=== PATIENT | female | born 1975 ===

== ENCOUNTER 2018-01-07 16:35 | Emergency (ER) | payer SELFPAY ==
[2018-01-07 17:18] LABS: Absolute Lymphocytes (CBC) 1.7 K/uL (0.7-4.9); Absolute Monocytes 0.6 K/uL (0.1-1.3); Absolute Neutrophil 5.6 K/uL (1.8-8.0); Basophils % 0.5 % (0-1.3); Eosinophils % 0.7 % (0-4.4); Lymphocytes % 21.7 % (15.3-44.8); MCH 28.7 pg (27.0-35.0); MCV 85.1 fL (80-100); MPV 7.8 fL (7.6-11.3); RBC Red Blood Cell Count 4.46 M/uL (3.86-4.86)
[2018-01-07 17:19] LABS: Protime INR 1.08
[2018-01-07] MEDS ORDERED: ONDANSETRON 4 MG/2 ML VIAL ONE (17:26)
[2018-01-07 17:31] LABS: ALT/SGPT 20 U/L (12-78); AST/SGOT 15 U/L (15-37); Albumin 3.9 g/dL (3.4-5.0); Alkaline Phosphatase 67 U/L (45-117); BUN Blood Urea Nitrogen 16 mg/dL (7-18); Bicarbonate 24 mmol/L (21-32); Bilirubin Direct 0.1 mg/dL (0-0.2); Bilirubin Total 0.4 mg/dL (0.2-1.0); Glucose Level 94 mg/dL (74-106); Magnesium 2.1 mg/dL (1.8-2.4); NT PRO-BNP 72 pg/mL (<125); Potassium 3.1 mmol/L (3.5-5.1); Protein, Total 8.3 g/dL (6.4-8.2); Sodium Level 139 mmol/L (136-145); Troponin (Emerg Dept Use Only) < 0.02 ng/mL (0.0-0.045)
[2018-01-07] MEDS ORDERED: POTASSIUM 25 MEQ EFFERV TAB ONE (17:42)
--- NOTE | 2018-01-07 18:01 | RAD REPORT ---
EXAM DESCRIPTION: RAD - Chest Single View - 01/07/2018 5:12 pm CLINICAL HISTORY: Chest pain COMPARISON: None. TECHNIQUE: AP portable chest image was obtained 1701 hours . FINDINGS: Lungs are clear. Heart and vasculature are normal. No measurable pleural effusion and no p neumothorax. No acute bony abnormality seen. No acute aortic findings suspected. IMPRESSION: No acute cardiopulmonary process.
[2018-01-07 19:20] LABS: Urine Blood NEGATIVE (NEG); Urine Glucose NEGATIVE (NEG); Urine Protein NEGATIVE (NEG); Urine pH 5.5 (5.0-7.0)
--- NOTE | 2018-01-07 21:35 | ER ---
Nurse's Notes [facility] Name: Deanne Quintero Age: 42 yrs Sex: Female : 1975 Arrival Date: 01/07/2018 Time: 16:36 Bed 14 Private MD: Diagnosis: Chest pain, unspecified Presentation: 01/07 16:40 Presenting complaint: Patient states: I was walking around the store and suddenly got la1 nausea and felt like I was going to pass out and now I am having chest pain and numbness/tingling. Transition of care: patient was not received from another setting of care. Onset of symptoms was January 07, 2018. Risk Assessment: Do you want to hurt yourself or someone else? Patient reports no desire to harm self or others. Initial Sepsis Screen: Does the patient meet any 2 criteria? No. Patient's initial sepsis screen is negative. Does the patient have a suspected source of infection? No. Patient's initial sepsis screen is negative. Care prior to arrival: None. 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 - Social history:: Smoking status: Patient/guardian denies using tobacco. - Ebola Screening: : No symptoms or risks identified at this time. Screenin:46 Abuse screen: Denies threats or abuse. Denies injuries from another. Nutritional aj screening: No deficits noted. Tuberculosis screening: No symptoms or risk factors identified. Fall Risk None identified. Assessment: 16:46 General: Appears in no apparent distress. comfortable, Behavior is anxious. Pain: aj Complains of pain in anterior aspect of left upper chest, xyphoid area, mid-sternal area and left breast Pain radiates to left arm Pain began suddenly. Neuro: Level of Consciousness is awake, alert, obeys commands, Oriented to person, place, time, situation, Appropriate for age. Cardiovascular: Reports chest pain, lightheadedness, nausea, Capillary refill < 3 seconds in bilateral fingers Rhythm is regular. Respiratory: Airway is patent Respiratory effort is even, unlabored, Respiratory pattern is regular, symmetrical. Derm: Skin is intact, is healthy with good turgor, Skin is pink, warm \T\ dry. normal. 17:24 Reassessment: Patient's boyfriend and son are at bedside. Patient provided with ice aj water and instructed to wait 15 minutes after Zofran administration before taking small sips of water. 19:05 Reassessment: Patient appears in no apparent distress at this time. Patient and/or cc3 family updated on plan of care and expected duration. Pain level reassessed. Patient is alert, oriented x 3, equal unlabored respirations, skin warm/dry/pink. Received this female patient from morning shift TALA Montague as a case of chest pain, with IV cannula gauge 20 at the right metacarpal vein saline locked; for repeat Troponin I at 2100H as endorsed. NRS 2/10 now. 20:56 Reassessment: Repeat Troponin I sent to laboratory as ordered, awaiting result. cc3 21:29 Reassessment: Patient appears in no apparent distress at this time. Patient and/or cc3 family updated on plan of care and expected duration. Pain level reassessed. Patient is alert, oriented x 3, equal unlabored respirations, skin warm/dry/pink. 21:53 Reassessment: Patient appears in no apparent distress at this time. Patient and/or cc3 family updated on plan of care and expected duration. Pain level reassessed. Patient is alert, oriented x 3, equal unlabored respirations, skin warm/dry/pink. WILLIE Joe discharged the patient home no prescription was given. IV cannula removed and patient left ER vitally stable and ambulatory with her family. Vital Signs: 16:41 BP 151 / 108; Pulse 86; Resp 16; Temp 97.2; Pulse Ox 98% on R/A; Weight 72.57 kg; la1 Height 5 ft. 4 in. (162.56 cm); 17:04 BP 161 / 98; Pulse 74; Resp 18; Pulse Ox 99% on R/A; aj 17:38 BP 144 / 97; Pulse 81; Resp 14; Pulse Ox 100% on R/A; aj 17:49 BP 143 / 94; Pulse 75; Resp 19; Pulse Ox 97% on R/A; aj 19:15 BP 127 / 91; Pulse 63; Resp 17 S; Pulse Ox 99% on R/A; Pain 2/10; cc3 21:30 BP 131 / 92; Pulse 68; Resp 18 S; Pulse Ox 98% on R/A; cc3 16:41 Body Mass Index 27.46 (72.57 kg, 162.56 cm) la1 ED Course: 16:36 Patient arrived in ED. tw3 16:41 Triage completed. la1 16:41 Arm band placed on left wrist. la1 16:42 Heath Woods NP is PHCP. pm1 16:42 Kraig Jain MD is Attending Physician. pm1 16:43 Clari Murillo, RN is Primary Nurse. aj 16:46 Patient has correct armband on for positive identification. Placed in gown. Bed in low aj position. athletic monitor on. Pulse ox on. NIBP on. 17:03 Inserted saline lock: 20 gauge in right wrist, using aseptic technique. Blood aj collected. Patient maintains SpO2 saturation greater than 95% on room air. 17:13 XRAY Chest (1 view) In Process Unspecified. EDMS 21:55 No provider procedures requiring assistance completed. IV discontinued, intact, cc3 bleeding controlled, No redness/swelling at site. Pressure dressing applied. Administered Medications: 17:23 Drug: Zofran 4 mg Route: IVP; Site: right wrist; aj 17:43 Follow up: Response: Nausea is decreased aj 17:38 Drug: Potassium Effervescent Tablet 50 mEq Route: PO; aj 17:50 Follow up: Response: No adverse reaction aj Outcome: 21:35 Discharge ordered by . pm1 21:55 Discharged to home ambulatory, with family. cc3 21:55 Condition: stable 21:55 Discharge instructions given to patient, family, Instructed on discharge instructions, follow up and referral plans. Demonstrated understanding of instructions, follow-up care. 21:58 Patient left the ED. cc3 Signatures: Dispatcher [employer] EDMS Clari Murillo RN RN aj Attema, Lee, RN RN la1 Heath Woods NP FUR MATCHER pm1 Simin Garay tw3 Norma Fowler cc3
--- NOTE | 2018-01-07 21:35 | EDPHYS ---
Physician Documentation [facility] Name: Deanne Quintero Age: 42 yrs Sex: Female : 1975 Arrival Date: 01/07/2018 Time: 16:36 Bed 14 Private MD: ED Physician Kraig Jain HPI: 01/07 17:00 This 42 yrs old Female presents to ER via Ambulatory with complaints of Chest pm1 Pain, Arm Pain. 17:00 The patient or guardian reports chest pain that is located primarily in the anterior pm1 aspect of left upper chest. Onset: 1 hour(s) ago. The pain does not radiate. Associated signs and symptoms: Pertinent positives: nausea, Pertinent negatives: abdominal pain, cough, headache, shortness of breath, vomiting. 17:00 The chest pain is described as aching. Duration: The patient or guardian reports a pm1 single episode, that is now resolved. Modifying factors: The symptoms are alleviated by nothing. the symptoms are aggravated by nothing. Severity of pain: in the emergency department the pain has resolved is a 0 / 10. The patient has not experienced similar symptoms in the past. Patient shopping and she felt nauseated. After nausea patient reported chest pain and left arm pain. Symptoms of chest pain and left arm pain resolved prior to arrival. 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 - Social history:: Smoking status: Patient/guardian denies using tobacco. - Ebola Screening: : No symptoms or risks identified at this time. ROS: 17:00 Constitutional: Negative for fever, chills, and weight loss, Eyes: Negative for injury, pm1 pain, redness, and discharge, ENT: Negative for injury, pain, and discharge, Neck: Negative for injury, pain, and swelling. 17:00 Respiratory: Negative for shortness of breath, cough, wheezing, and pleuritic chest pain. 17:00 Back: Negative for injury and pain, : Negative for injury, bleeding, discharge, and swelling, MS/Extremity: Negative for injury and deformity, Skin: Negative for injury, rash, and discoloration, Neuro: Negative for headache, weakness, numbness, tingling, and seizure. 17:00 Cardiovascular: Positive for chest pain, Negative for edema, orthopnea, palpitations. 17:00 Abdomen/GI: Positive for nausea, Negative for abdominal pain, vomiting, diarrhea. Exam: 17:00 Constitutional: This is a well developed, well nourished patient who is awake, alert, pm1 and in no acute distress. Head/Face: Normocephalic, atraumatic. Eyes: Pupils equal round and reactive to light, extra-ocular motions intact. Lids and lashes normal. Conjunctiva and sclera are non-icteric and not injected. Cornea within normal limits. Periorbital areas with no swelling, redness, or edema. ENT: Nares patent. No nasal discharge, no septal abnormalities noted. Tympanic membranes are normal and external auditory canals are clear. Oropharynx with no redness, swelling, or masses, exudates, or evidence of obstruction, uvula midline. Mucous membranes moist. Neck: Trachea midline, no thyromegaly or masses palpated, and no cervical lymphadenopathy. Supple, full range of motion without nuchal rigidity, or vertebral point tenderness. No Meningismus. Chest/axilla: Normal chest wall appearance and motion. Nontender with no deformity. No lesions are appreciated. Cardiovascular: Regular rate and rhythm with a normal S1 and S2. No gallops, murmurs, or rubs. Normal PMI, no JVD. No pulse deficits. Respiratory: Lungs have equal breath sounds bilaterally, clear to auscultation and percussion. No rales, rhonchi or wheezes noted. No increased work of breathing, no retractions or nasal flaring. Abdomen/GI: Soft, non-tender, with normal bowel sounds. No distension or tympany. No guarding or rebound. No evidence of tenderness throughout. Back: No spinal tenderness. No costovertebral tenderness. Full range of motion. Skin: Warm, dry with normal turgor. Normal color with no rashes, no lesions, and no evidence of cellulitis. MS/ Extremity: Pulses equal, no cyanosis. Neurovascular intact. Full, normal range of motion. Neuro: Awake and alert, GCS 15, oriented to person, place, time, and situation. Cranial nerves II-XII grossly intact. Motor strength 5/5 in all extremities. Sensory grossly intact. Cerebellar exam normal. Normal gait. Vital Signs: 16:41 BP 151 / 108; Pulse 86; Resp 16; Temp 97.2; Pulse Ox 98% on R/A; Weight 72.57 kg; la1 Height 5 ft. 4 in. (162.56 cm); 17:04 BP 161 / 98; Pulse 74; Resp 18; Pulse Ox 99% on R/A; aj 17:38 BP 144 / 97; Pulse 81; Resp 14; Pulse Ox 100% on R/A; aj 17:49 BP 143 / 94; Pulse 75; Resp 19; Pulse Ox 97% on R/A; aj 19:15 BP 127 / 91; Pulse 63; Resp 17 S; Pulse Ox 99% on R/A; Pain 2/10; cc3 21:30 BP 131 / 92; Pulse 68; Resp 18 S; Pulse Ox 98% on R/A; cc3 16:41 Body Mass Index 27.46 (72.57 kg, 162.56 cm) la1 MDM: 16:42 Patient medically screened. pm1 17:42 Data reviewed: vital signs. Data interpreted: Pulse oximetry: on room air is 100 %. pm1 Interpretation: normal. 21:34 Counseling: I had a detailed discussion with the patient and/or guardian regarding: the pm1 historical points, exam findings, and any diagnostic results supporting the discharge/admit diagnosis, lab results, radiology results, the need for outpatient follow up, to return to the emergency department if symptoms worsen or persist or if there are any questions or concerns that arise at home. 01/07 16:49 Order name: Basic Metabolic Panel; Complete Time: 17:33 pm1 01/07 16:49 Order name: CBC with Diff; Complete Time: 17:33 pm1 01/07 16:49 Order name: LFT's; Complete Time: 17:33 pm1 01/07 16:49 Order name: Magnesium; Complete Time: 17:33 pm1 01/07 16:49 Order name: NT PRO-BNP; Complete Time: 17:33 pm1 01/07 16:49 Order name: PT-INR; Complete Time: 17:33 pm1 01/07 16:49 Order name: Troponin (emerg Dept Use Only); Complete Time: 17:33 pm1 01/07 16:49 Order name: XRAY Chest (1 view); Complete Time: 18:05 pm1 01/07 16:49 Order name: EKG; Complete Time: 16:49 pm1 01/07 16:49 Order name: Cardiac monitoring; Complete Time: 17:05 pm1 01/07 18:16 Order name: Urine Dipstick--Ancillary (enter results); Complete Time: 19:29 ag 01/07 19:55 Order name: Troponin (emerg Dept Use Only): At 2100; Complete Time: 21:34 pm1 01/07 16:49 Order name: EKG - Nurse/Tech; Complete Time: 17:05 pm1 01/07 16:49 Order name: IV Saline Lock; Complete Time: 17:05 pm1 01/07 16:49 Order name: Labs collected and sent; Complete Time: 17:05 pm1 01/07 16:49 Order name: O2 Per Protocol; Complete Time: 17:05 pm1 01/07 16:49 Order name: O2 Sat Monitoring; Complete Time: 17:05 pm1 01/07 16:49 Order name: Urine Dipstick-Ancillary (obtain specimen); Complete Time: 19:39 pm1 Administered Medications: 17:23 Drug: Zofran 4 mg Route: IVP; Site: right wrist; aj 17:43 Follow up: Response: Nausea is decreased aj 17:38 Drug: Potassium Effervescent Tablet 50 mEq Route: PO; aj 17:50 Follow up: Response: No adverse reaction aj Disposition: 01/07/18 21:35 Discharged to Home. Impression: Chest pain, unspecified. - Condition is Stable. - Discharge Instructions: Nonspecific Chest Pain. - Medication Reconciliation Form, Thank You Letter form. - Follow up: Emergency Department; When: As needed; Reason: Worsening of condition. Follow up: Private Physician; When: 2 - 3 days; Reason: Recheck today's complaints, Continuance of care, Re-evaluation by your physician. - Problem is new. - Symptoms have improved. Addendum: 01/09/2018 07:14 Co-signature as Attending Physician, Kraig Jain MD I agree with the assessment and c diaz plan of care. Signatures: Dispatcher [employer] EDMS Clari Murillo RN RN aj Anderson, Corey, MD MD cha Attema, Lee RN RN la1 Heath Woods, MANAGER MECHANICAL MANAGER MECHANICAL pm1 Norma Fowler cc3 Corrections: (The following items were deleted from the chart) 10/13 21:58 21:35 01/07/2018 21:35 Discharged to Home. Impression: Chest pain, unspecified. cc3 Condition is Stable. Forms are Medication Reconciliation Form, Thank You Letter, Antibiotic Education, Prescription Opioid Use. Follow up: Emergency Department; When: As needed; Reason: Worsening of condition. Follow up: Private Physician; When: 2 - 3 days; Reason: Recheck today's complaints, Continuance of care, Re-evaluation by your physician. Problem is new. Symptoms have improved. pm1 01/08 03:52 01/07 17:00 Associated signs and symptoms: Pertinent positives: Pertinent negatives: pm1 abdominal pain, cough, headache, nausea, shortness of breath, vomiting, pm1
--- NOTE | 2018-01-09 10:13 | EKG ---
Test Date: 2018-01-07 Test Time: 16:50:10 Panel Monitor: DAVID MEASUREMENT RESULTS: Intervals: Rate: 85 ID: [id number] QRSD: 82 QT: 390 QTc: 464 [place]: P: 31 ID: [id number] QRS: -15 T: 43 INTERPRETIVE STATEMENTS: Sinus rhythm with sinus arrhythmia with occasional premature ventricular complexes Otherwise normal ECG No previous ECG available for comparison Electronically Signed On 01-09-18 10:12:53 CDT by Asad Brown
== END 2018-01-07 21:58 | disposition home or self-care (01) ==
LOC: ER 16:35
DX: R07.9 Chest pain, unspecified (principal); Z88.1 Allergy status to other antibiotic agents
CPT/HCPCS: 36415; 71045; 80048; 80076; 81003; 83735; 83880; 84484; 85025; 85610; 93005; 96374; 99285; J2405